=== PATIENT | female | born 1990 ===

== ENCOUNTER 2024-10-20 10:53 | Emergency (ER) | payer SELFPAY ==
[2024-10-20 11:00] VITALS: BP 157/100
[2024-10-20 11:27] VITALS: BP 126/90
--- NOTE | 2024-10-20 11:34 | ED.GENMED ---
History of Present Illness
General
Chief Complaint: Chest Problem
Source: patient
Exam Limitations: none
Time Seen by Provider: 10/20/24 11:20
History of Present Illness
History of Present Illness:
34yoF with no significant past medical history presenting for evaluation of chest pain. Symptoms woke her up from sleep around 3 AM this morning. She reports a central chest discomfort which is described as a burning and stabbing pain. Pain is
worse with lying flat and was also worse when she picked up her dog this morning. She was seen at [facility] overnight for the symptoms and workup was reportedly normal. She felt better after receiving morphine and Maalox and was told that she
likely had reflux. Pain recurred after discharge. Patient does not believe that this is reflux as she has not eaten anything since her symptoms began and pain is still present. She denies any shortness of breath, leg swelling, vomiting, fevers.
No tobacco use. No recent travel. Her father had an [place] in his late 30s.
Phy Exam
General Physical Exam
General Presentation: well appearing and no apparent distress
General age: appears stated age
General Skin: warm and dry
General Habitus: normal
General Mental: alert
ENT Exam
ENT Exam: normocephalic
Cardiovascular Exam
Cardiovascular Exam: regular rate/rhythm, no edema and no murmur
Pulmonary Exam
Pulmonary Exam: lungs clear, no respiratory distress, no rales, no crackles, no rhonchi and no wheezing
Gastrointestinal Exam
Gastrointestinal Exam: soft, non distended and other (+Epigastric tenderness)
Neurological Exam
Neurological Exam: alert
Grace Coma Scale
Eye Opening: Spontaneous
Verbal Response: Oriented
Motor Response: Obeys Commands
GCS Total Score: 15
Skin Exam
Skin Exam: normal color and warm/dry
Psychiatric Exam
Psychiatric Exam: normal mood/affect
Course
Orders/Labs/Results
Orders:
Orders
10/20/24 11:04
Electrocardiogram (*1) Urgent
Reason for Study: Chest Pain
EKG- Treatment ONCE
10/20/24 11:48
Famotidine [Pepcid] 20 mg PO NOW STA
Sucralfate Suspension [Carafate Suspension] 1 gm PO NOW STA
Test Result ONCE
US Abdomen Complete/Upper Urgent
Comment:
Reason For Exam: epigastric pain
10/20/24 12:03
Complete Blood Count/With Diff Urgent
Comprehensive Metabolic Panel Urgent
D-Dimer Urgent
HCG, Serum Qualitative Screen Urgent
Lipase Urgent
Troponin I Urgent
10/20/24 12:43
CR Chest - 2 Views Urgent
Comment:
Reason For Exam: CP
Abnormal Lab Results
10/20/24
12:03
WBC 12.0 H 10^3/uL
(4.8-10.8)
Absolute Neuts (auto) 10.0 H 10^3/uL
(1.4-6.5)
Absolute Lymphs (auto) 0.7 L 10^3/uL
(1.2-3.4)
Absolute Monos (auto) 0.7 H 10^3/uL
(0.1-0.6)
Neutrophils % 83.2 H %
(42.2-75.2)
Lymphocytes % 5.9 L %
(20.5-51.1)
Chloride 111 H mmol/L
(98-107)
BUN 6 L mg/dl
(7-17)
Calcium 8.2 L mg/dl
(8.4-10.2)
AST 155 H U/L
(14-36)
ALT 126 H U/L
(0-35)
Total Protein 6.0 L g/dl
(6.3-8.2)
10/20/24 12:03
10/20/24 12:03
Vital Signs
Initial and Last Documented VS:
Initial Vital Signs
Temp Pulse Resp BP Pulse Ox
98.0 F 74 16 157/100 98
10/20/24 11:00 10/20/24 11:00 10/20/24 11:00 10/20/24 11:00 10/20/24 11:00
Last Documented Vital Signs
Temp Pulse Resp BP Pulse Ox
98.0 F 86 18 143/90 98
10/20/24 11:00 10/20/24 14:41 10/20/24 14:41 10/20/24 14:41 10/20/24 14:41
MDM/Problems Addressed
Differential Diagnosis Includes:
34yoF here with central burning/stabbing chest pain that woke her up in the middle of the night. Worse with lying flat. Seen at outside ED and told it was reflux. Here with ongoing symptoms. She is hypertensive with otherwise normal vitals. There is
epigastric tenderness on exam. Differential diagnosis includes but is not limited to: GERD, pancreatitis, biliary colic, musculoskeletal, less likely cardiac
Initial ED plan: EKG obtained in triage shows NSR without ischemic changes. Check cardiac labs, D-dimer, lipase, and upper abdominal ultrasound. Will obtain CXR vs. CT depending on D-dimer results. Carafate and Pepcid for symptoms.
*EKG
Interpreted by ED Provider?: Yes
EKG Intrepretation Date: 10/20/24
Heart Rate: 78
Rate: normal
Rhythm: sinus
[place]: normal axis
Interval: normal interval
QRS Pattern: normal QRS
Ischemia: no ischemia
*Critical Care Note
Total Time (30-74mins, 75-104mins- exclusive of procedures): Not Applicable
Update Note
Update Note:
Transaminitis noted on labs with AST 155 and ALT 126. Bilirubin and lipase normal. No prior labs to compare to. Troponin and D-dimer within normal limits. Upper abdominal ultrasound is normal. Specifically, liver appears normal and there is no
cholelithiasis. CXR appears normal. Patient feeling improved after antacids suggesting GI etiology of her symptoms. No indication for hospitalization. Supportive care discussed and advised f/u with PCP. ED return precautions reviewed. Patient in
agreement with plan and was discharged in stable condition.
ED Attending Note
-
Portions of this chart may have been created with voice recognition software.� Occasional wrong word or��sound alike� substitutions may have occurred due to the inherent limitations of voice recognition software.
Discharge Plan
Departure
Patient Disposition: Home (Routine Discharge)
Date of Disposition: 10/20/24
Time of Disposition: 14:42
Patient with high blood pressure during this ER visit?: Yes
Discharge Problem:
Chest pain, Transaminitis
Instructions: Chest Pain PCP Follow Up
Referrals:
Lazara Baez, [Family Provider, Internal Medicine]
Activity Restrictions/Additional Instructions:
Please follow-up with your family doctor this week. Return to the ER with any new or worsening symptoms.
Interventions
Interventions:
*Risk Screen - Suicide Last Done: 10/20/24 11:00
*General Assessment Last Done: 10/20/24 12:15
*Neglect/Abuse Screening Last Done: 10/20/24 11:00
*Nursing Disposition Last Done: 10/20/24 14:53
ED- Cardiac Assessment Last Done: 10/20/24 12:15
ED- Pulmonary Assessment Last Done: 10/20/24 12:15
Discharge Date and Time
Discharge Date/Time: 10/20/24 14:54
Print Language: [place]
[2024-10-20 12:00] VITALS: BP 133/93
[2024-10-20 12:18] LABS: % Basophils 0.4 % (0-2); % Eosinophils 4.3 % (0-6); % Immature Granulocytes 0.3 % (0-0.5); % Lymphocytes 5.9 % (20.5-51.1); % Monocytes 5.9 % (1.7-9.3); % Neutrophils 83.2 % (42.2-75.2); Absolute Basophils 0.1 10^3/uL (0-0.2); Absolute Eosinophils 0.5 10^3/uL (0-0.7); Absolute Lymphocytes 0.7 10^3/uL (1.2-3.4); Absolute Monocytes 0.7 10^3/uL (0.1-0.6); Hematocrit 39.9 % (37.0-47.0); Hemoglobin 13.6 g/dL (12.0-16.0); Mean Corp Hgb Conc. 34.1 g/dL (33.0-37.0); Mean Corpuscular Hgb 30.9 pg (27.0-31.0); Mean Corpuscular Volume 90.7 fL (81.0-99.0); Mean Platelet Volume 9.4 fL (7.4-10.4); Nucleated Red Blood Cells % 0 %; Platelet Count 224 10^3/uL (130-400); Red Cell Dist. Width 12.7 % (11.5-14.5)
[2024-10-20 12:29] LABS: HCG, Serum Qualitative Screen Negative
[2024-10-20 12:31] LABS: D-Dimer 0.43 ug/mlFEU (0.00-0.50)
[2024-10-20 12:32] LABS: ALT (SGPT) 126 U/L (0-35); AST (SGOT) 155 U/L (14-36); Albumin 3.6 g/dl (3.5-5.0); Alkaline Phosphatase 79 U/L (38-126); Blood Urea Nitrogen 6 mg/dl (7-17); Calcium 8.2 mg/dl (8.4-10.2); Carbon Dioxide 25 mmol/L (22-30); Chloride 111 mmol/L (98-107); Glucose 98 mg/dl (70-99); Lipase 73 U/L (23-300); Potassium 3.8 mmol/L (3.5-5.1); Sodium 139 mmol/L (135-145); Total Bilirubin 0.7 mg/dl (0.2-1.3); eGFR > 60.00
[2024-10-20 12:42] LABS: Troponin I < 0.012 ng/ml
[2024-10-20] MEDS: CARAFATE SUSPENSION 1 GM PO (13:23)
[2024-10-20] MEDS: PEPCID 20 MG PO (13:23)
[2024-10-20 14:40] VITALS: BP 143/90
[2024-10-20 14:41] VITALS: BP 143/90
== END 2024-10-20 14:54 | disposition home or self-care (01) ==
LOC: EMR 10:53
PROVIDERS: Physician Assistant; EMERGENCY PHYSICIAN Emergency Medicine; FAMILY PHYSICIAN Internal Medicine
DX: R07.89 Other chest pain (principal); R10.816 Epigastric abdominal tenderness; R74.01 Elevation of levels of liver transaminase levels; R03.0 Elevated blood-pressure reading, without diagnosis of hypertension
CPT/HCPCS: 99284; 71046; 76700; 80053; 83690; 84484; 84703; 85025; 85379; 93005